=== PATIENT | male | born 1940 | race Caucasian/White ===

== ENCOUNTER 2017-02-02 18:50 | Emergency (ER) | payer MEDICARE, BC ==
--- NOTE | 2017-02-02 20:02 | EDM.PDOC ---
ED HPI GENERAL MEDICAL PROBLEM - General Chief Complaint: General Stated Complaint: URINARY PROBLEMS Time Seen by Provider: 02/02/17 19:30 Source of Information: Reports: Patient History Limitations: Reports: No Limitations - History of Present Illness INITIAL COMMENTS - FREE TEXT/NARRATIVE: According to patient he was at the [facility] today as he was having frequent urination and burning sensation at the tip of the penis. Pt did have urine analysis done in the clinic and told that his urine appears normal. He did not see any provider and he went home. Pt claims that since he has been home he has been having constant spasms in the lower abdomen and he has been urinating small amount of urine every 15-20 minutes. He did use the bathroom here in the emergency room twice. No back pain. No fever or chills. No nausea or vomiting. He has a constant urge to urinate and he has to strain to get small amount of urine. Pt claims he has had problem with his prostate for a while. In december2016 he was started on avodart 5mg daily to help shrink the prostate, but patient claims his symptoms did not improve in [address] Flores his PCP , has increased his flomax to 0.8mg fe weeks ago, and since today evening he started having problem with urinating. Onset: Today Onset Date: 02/02/17 Onset Time: 12:00 Location: Reports: Abdomen Quality: Reports: Ache Severity: Severe Associated Symptoms: Denies: Confusion, Chest Pain, Cough, Diaphoresis, Fever/ Chills, Nausea/Vomiting, Rash, Seizure, Shortness of Breath, Syncope, Weakness - Related Data Allergies Allergy/AdvReac Type Severity Reaction Status Date / Time gluten AdvReac Mild Diarrhea Verified 07/22/15 12:15 smelt Allergy Severe Vomiting Uncoded 07/22/15 12:15 Home Meds: Home Meds Aspirin [Lillian Chewable Aspirin] 162 mg PO DAILY 07/26/13 [History] Lisinopril 20 mg PO DAILY 07/26/13 [History] Rosuvastatin Calcium [Crestor] 20 mg PO DAILY 07/26/13 [History] Tamsulosin HCl 0.4 mg PO DAILY 07/26/13 [History] Clopidogrel Bisulfate [Clopidogrel] 75 mg PO DAILY 07/22/15 [History] Hydrocort/Neomycin/Polymyxin B [Cortisporin Otic Susp] 2 drop EARBOTH TID [History] Loratadine [Claritin] 10 mg PO DAILY PRN 07/22/15 [History] Olopatadine HCl [Pataday] 1 drop EYEBOTH DAILY 07/22/15 [History] Acetaminophen [Tylenol] 650 mg PO Q4H PRN #0 tablet 07/23/15 [Rx] Azithromycin [Zithromax] 250 mg PO DAILY 4 Days tablet 07/23/15 [Rx] Past Medical History HEENT History: Reports: Cataract, Sinusitis, Other (See Below) Other HEENT History: Right ear itching and scaling at times Cardiovascular History: Reports: CAD, High Cholesterol, Hypertension, [place], Stents Gastrointestinal History: Reports: Other (See Below) Other Gastrointestinal History: lactose intolerant Genitourinary History: Reports: BPH Musculoskeletal History: Reports: Other (See Below) Other Musculoskeletal History: lower back pain - Infectious Disease History Infectious Disease History: Reports: Chicken Pox, Measles, Mumps, Rubella, Other (See Below) - Past Surgical History HEENT Surgical History: Reports: Cataract Surgery Cardiovascular Surgical History: Reports: Coronary Artery Stent GI Surgical History: Reports: Appendectomy, Hernia, Abdominal Social & Family History - Family History Family Medical History: Noncontributory Cardiac: Reports: Aneurysm, CAD, [place], Stent Respiratory: Reports: Asthma, COPD GI: Reports: Other (See Below) Other GI Family History: lactose intolerance Musculoskeletal: Reports: Arthritis Neurological: Reports: None Psychiatric: Reports: None - Tobacco Use Smoking Status *Q: Former Smoker Years of Tobacco use: 20 Used Tobacco, but Quit: No Month Tobacco Last Used: january Second Hand Smoke Exposure: No - Alcohol Use Days Per Week of Alcohol Use: 1 Number of Drinks Per Day: 1 Total Drinks Per Week: 1 - Recreational Drug Use Recreational Drug Use: No ED ROS GENERAL - Review of Systems Review Of Systems: See Below Constitutional: Denies: Fever, Chills, Malaise HEENT: Denies: Rhinitis, Sinus Problem, Throat Pain, Throat Swelling Respiratory: Denies: Shortness of Breath, Wheezing, Pleuritic Chest Pain, Cough , Sputum Cardiovascular: Denies: Chest Pain, Lightheadedness GI/Abdominal: Reports: Abdominal Pain. Denies: Constipation, Diarrhea, Nausea, Vomiting : Reports: Frequency, Urgency, Urinary Retention. Denies: Flank Pain, Hematuria, Incontinence Musculoskeletal: Denies: Neck Pain, Joint Pain, Joint Swelling Skin: Denies: Pruritis, Rash ED EXAM, GENERAL - Physical Exam Exam: See Below Exam Limited By: No Limitations General Appearance: Alert, WD/WN, No Apparent Distress Eye Exam: Bilateral Eye: EOMI, PERRL Ears: Normal External Exam, Normal Canal, Hearing Grossly Normal, Normal TMs Ear Exam: Bilateral Ear: Auricle Normal, Canal Normal, TM normal Nose: Normal Inspection, Normal Mucosa, No Blood Throat/Mouth: Normal Inspection, Normal Lips, Normal Teeth, Normal Gums, Normal Oropharynx, Normal Voice, No Airway Compromise Head: Atraumatic, Normocephalic Neck: Normal Inspection, Supple, Non-Tender, Full Range of Motion Respiratory/Chest: No Respiratory Distress, Lungs Clear, Normal Breath Sounds, No Accessory Muscle Use, Chest Non-Tender Cardiovascular: Normal Peripheral Pulses, Regular Rate, Rhythm, No Edema, No Gallop, No JVD, No Murmur, No Rub GI/Abdominal: Normal Bowel Sounds, Soft, No Distention, Tender (suprapubic area) , Other (mild distension of the bladder) Course - Vital Signs Text/Narrative:: Pt has had progressive urinary obstruction over few months. he has been on flomax 0.8mg and avodart 5mg and he has complete urinary obstruction. I did bladder scan and he has about 237 cc of urine, but he feels urge to urinate and has just few drops of urine. His urine analysis appears normal. It does appear like prostatic urinary obstruction. Pt was reassured, I did recommend urinary catheter to take away his discomfort and urge feeling. He did agree. I have placed a indwelling urinary catheter today. he did drain about 150cc or yellowish straw colored urine. Leg bag has been applied. Catheter care discussed.Pt has been advised to stay on the urinary catheter for now. i will tryto contact [facility] in [place] and arrange appointment for patient. Pt advised to continue on flomax and avodart for now. Departure - Departure Time of Disposition: 20:00 Disposition: Home, Self-Care 01 Condition: Good Clinical Impression: Urinary obstruction - Discharge Information - Problem List & Annotations (1) Urinary obstruction SNOMED Code(s): 1735594 Code(s): N13.9 - OBSTRUCTIVE AND REFLUX UROPATHY, UNSPECIFIED Status: Acute - Problem List Review Problem List Initiated/Reviewed/Updated: Yes - Assessment/Plan Assessment:: Acute urinary obstruction Plan: Pt has had progressive urinary obstruction over few months. he has been on flomax 0.8mg and avodart 5mg and he has complete urinary obstruction. I did bladder scan and he has about 237 cc of urine, but he feels urge to urinate and has just few drops of urine. His urine analysis appears normal. It does appear like prostatic urinary obstruction. Pt was reassured, I did recommend urinary catheter to take away his discomfort and urge feeling. He did agree. I have placed a indwelling urinary catheter today. he did drain about 150cc or yellowish straw colored urine. Leg bag has been applied. Catheter care discussed.Pt has been advised to stay on the urinary catheter for now. i will tryto contact [facility] clinic in [place] and arrange appointment for patient. Pt advised to continue on flomax and avodart for now.
== END 2017-02-02 20:00 | disposition home or self-care (01) ==
LOC: LB.ED 18:50
DX: N13.9 Obstructive and reflux uropathy, unspecified (principal); I10 Essential (primary) hypertension; I25.10 Atherosclerotic heart disease of native coronary artery without angina pectoris; E78.00 Pure hypercholesterolemia, unspecified; Z87.891 Personal history of nicotine dependence; Z79.82 Long term (current) use of aspirin; Z79.02 Long term (current) use of antithrombotics/antiplatelets; Z79.2 Long term (current) use of antibiotics; Z79.899 Other long term (current) drug therapy; Z91.048 Other nonmedicinal substance allergy status; R30.0 Dysuria
CPT/HCPCS: 51702; 51798; 81001; 99283; 99283-25

== ENCOUNTER 2017-03-21 16:39 | Emergency (ER) | payer MEDICARE, BC ==
[2017-03-21] MEDS ORDERED: Ondansetron 4 MG Tab.DIS PO ONE (19:06)
[2017-03-21] MEDS ORDERED: Ondansetron 4 MG Tab.DIS ONE (19:09)
[2017-03-21] MEDS ORDERED: Oseltamivir 75 MG Cap ONE ×2 (19:50→19:53)
--- NOTE | 2017-03-22 00:34 | ER ---
HISTORY OF PRESENT ILLNESS: A 76-year-old male here with complaints of not feeling well since Wednesday. He has had flu-like symptoms. He has had a fever as high as 101 at home, achiness, and tiredness. He did vomit once upon arriving at the emergency room this evening. The patient denies any problems with shortness of breath or any recent falls or injuries. He has been exposed to other sick people as well. He is currently ending a 35- day course of Cipro for prostatitis. OBJECTIVE: GENERAL APPEARANCE: The patient is awake and alert. No obvious distress. VITAL SIGNS: Reviewed. As listed, he has a current temp of 99.1. HEENT: Ears, TMs are normal. Nares are patent. Oral mucous membranes are moist. Posterior pharynx shows mild drainage. Tonsils are not enlarged or injected. NECK: Supple. LUNGS: Lung exam reveals minimal end- expiratory rhonchi in both upper lobes. No wheezing. CARDIAC: Heart sounds distinct. No murmurs. ABDOMEN: Soft and nontender. Bowel sounds are present. SKIN: Warm and dry. LAB AND X-RAY: Rapid flu is positive for influenza A. CBC shows a normal white count. Metabolic panel is unremarkable. DIAGNOSIS: Influenza type A. TREATMENT PLAN: Tamiflu will be started at 75 mg b.i.d. for 5 days. The patient's will also be started on Tamiflu prophylactically which is 75 mg daily for 10 days. He is to go home and rest, take it easy, use Tylenol or ibuprofen as needed for fever and achiness, and increase his liquid intake using small frequent drinks. Follow up should be p.r.n. but promptly if his symptoms get worse. CRS/MODL /[id number]
--- NOTE | 2017-03-22 09:08 | CR ---
DATE OF SERVICE: 03/21/17 CLINICAL DATA: cough AP CHEST: Comparison is made to a prior exam dated 07/22/15. The heart size is normal. The aorta is calcified and ectatic. There is linear fibrosis in the right lung base. The lungs are otherwise clear. No pneumothorax. No pleural effusions. No areas of consolidation. [id number] MTDD
== END 2017-03-21 19:57 | disposition home or self-care (01) ==
LOC: LB.ED 16:39
DX: J10.1 Influenza due to other identified influenza virus with other respiratory manifestations (principal)
CPT/HCPCS: 36415; 71045; 80048; 85025; 87804; 99284; A9270-GY

== ENCOUNTER 2020-04-14 16:28 | Emergency (ER) | payer MEDICARE ==
[2020-04-14] MEDS: Aspirin 81 MG Tab.Chew PO STA (17:40)
--- NOTE | 2020-04-14 17:47 | EDM.PDOC ---
ED HPI GENERAL MEDICAL PROBLEM - General Chief Complaint: General Stated Complaint: SHORT OF BREATH Time Seen by Provider: 04/14/20 17:30 Source of Information: Reports: Patient History Limitations: Reports: No Limitations - History of Present Illness INITIAL COMMENTS - FREE TEXT/NARRATIVE: patient presented to the ER with a c/o exertional dyspnea. h/o HTN and previous cardiac stents placement 6-7 years ago. Reports that today's dyspnea has occurred after he was changing his car tires. No CP. He reports that he is usually active and cam walk a mile without problems, but usually get SOB after strenous activities like today. Most of the times it resolves after one Nitro SL, but today, he had to take another nitro to help with his symptoms.. given the medical history, his decided to call 911 to bring him to the ER. Per EMS reports, his was stable and asymptomatic upon their arrival. EKG was WNL and vitals were stable and WNL too. Patient is on ASA 81mg and plavix daily. 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 - Related Data Allergies Allergy/AdvReac Type Severity Reaction Status Date / Time gluten AdvReac Mild Diarrhea Verified 07/22/15 12:15 smelt Allergy Severe Vomiting Uncoded 07/22/15 12:15 Home Meds: Home Meds Aspirin [Lillian Chewable Aspirin] 162 mg PO DAILY 07/26/13 [History] Rosuvastatin Calcium [Crestor] 20 mg PO ASDIRECTED MDD twice weekly 07/26/13 [History] Tamsulosin HCl 0.4 mg PO DAILY 07/26/13 [History] Clopidogrel Bisulfate [Clopidogrel] 75 mg PO DAILY 07/22/15 [History] Acetaminophen [Tylenol] 650 mg PO Q4H PRN #0 tablet 07/23/15 [Rx] Losartan [Cozaar] 25 mg PO DAILY 04/14/20 [History] Past Medical History HEENT History: Reports: Cataract, Sinusitis, Other (See Below) Other HEENT History: Right ear itching and scaling at times Cardiovascular History: Reports: CAD, High Cholesterol, Hypertension, [place], Stents Gastrointestinal History: Reports: Other (See Below) Other Gastrointestinal History: lactose intolerant Genitourinary History: Reports: BPH Musculoskeletal History: Reports: Other (See Below) Other Musculoskeletal History: lower back pain - Infectious Disease History Infectious Disease History: Reports: Chicken Pox, Measles, Mumps, Rubella, Other (See Below) - Past Surgical History HEENT Surgical History: Reports: Cataract Surgery Cardiovascular Surgical History: Reports: Coronary Artery Stent GI Surgical History: Reports: Appendectomy, Hernia, Abdominal Social & Family History - Family History Family Medical History: No Pertinent Family History Cardiac: Reports: Aneurysm, CAD, [place], Stent Respiratory: Reports: Asthma, COPD GI: Reports: Other (See Below) Other GI Family History: lactose intolerance Musculoskeletal: Reports: Arthritis Neurological: Reports: None Psychiatric: Reports: None - Tobacco Use Tobacco Use Status *Q: Never Tobacco User Tobacco Use Within Last Twelve Months: No ED ROS GENERAL - Review of Systems Review Of Systems: See Below Constitutional: Reports: No Symptoms HEENT: Reports: No Symptoms Respiratory: Reports: Shortness of Breath Cardiovascular: Reports: Dyspnea on Exertion. Denies: Chest Pain Endocrine: Reports: No Symptoms GI/Abdominal: Reports: No Symptoms : Reports: No Symptoms Musculoskeletal: Reports: No Symptoms Skin: Reports: No Symptoms Neurological: Reports: No Symptoms Psychiatric: Reports: No Symptoms ED EXAM, GENERAL - Physical Exam Exam: See Below Exam Limited By: No Limitations General Appearance: Alert, WD/WN, No Apparent Distress Eye Exam: Bilateral Eye: EOMI Throat/Mouth: Normal Inspection Head: Atraumatic, Normocephalic Respiratory/Chest: No Respiratory Distress, Lungs Clear Cardiovascular: Normal Peripheral Pulses, Regular Rate, Rhythm, No Edema Peripheral Pulses: 2+: Carotid (L), Carotid (R) GI/Abdominal: Normal Bowel Sounds, Soft Extremities: Normal Inspection, Normal Range of Motion Neurological: Alert, Oriented, Normal Cognition, No Motor/Sensory Deficits Psychiatric: Normal Affect Course - Vital Signs Last Recorded V/S: Last Vital Signs Temp 36.9 C 04/14/20 17:33 Pulse 64 04/14/20 21:00 Resp 16 04/14/20 21:00 BP 150/77 H 04/14/20 21:00 Pulse Ox 97 04/14/20 19:00 - Orders/Labs/Meds Labs: Laboratory Tests 04/14/20 04/14/20 04/14/20 Range/Units 17:39 17:39 17:39 WBC 7.6 D (4.0-11.0) K/uL RBC 4.81 (4.50-6.50) M/uL Hgb 14.4 (13.0-18.0) g/dL Hct 43.4 (40.0-54.0) % MCV 90 (76-96) fL MCH 29.9 (27.0-32.0) pg MCHC 33.2 (31.0-35.0) g/dL RDW 13.1 (11.0-16.0) % Plt Count 144 L (150-400) K/uL MPV 11.3 H (6.0-10.0) fL D-Dimer, Quantitative < 100 (0-400) ng/mL Sodium 139 (136-145) mmol/L Potassium 3.9 (3.5-5.1) mmol/L Chloride 103 (98-107) mmol/L Carbon Dioxide 26.1 (21.0-32.0) mmol/L Anion Gap 13.8 (5.0-15.0) mmol/L BUN 13 D (8-26) mg/dL Creatinine 1.07 (0.70-1.30) mg/dL Est Cr Clr Drug Dosing TNP Estimated GFR (MDRD) > 60 (>60) MLS/MIN BUN/Creatinine Ratio 12.1 (6-25) Glucose 113 H (74-100) mg/dL Calcium 10.0 (8.5-10.1) mg/dL Total Bilirubin 0.3 D (0.0-1.0) mg/dL AST 31 (15-37) U/L ALT 41 (12-78) U/L Alkaline Phosphatase 120 H (46-116) U/L Troponin I < 0.017 (0.000-0.060) ng/mL B-Natriuretic Peptide 86 D (0-450) pg/mL Total Protein 7.6 (6.4-8.2) g/dL Albumin 3.6 (3.4-5.0) g/dL Globulin 4.0 (2.2-4.2) g/dL Albumin/Globulin Ratio 0.9 (0.8-2.0) 04/14/20 Range/Units 21:00 WBC (4.0-11.0) K/uL RBC (4.50-6.50) M/uL Hgb (13.0-18.0) g/dL Hct (40.0-54.0) % MCV (76-96) fL MCH (27.0-32.0) pg MCHC (31.0-35.0) g/dL RDW (11.0-16.0) % Plt Count (150-400) K/uL MPV (6.0-10.0) fL D-Dimer, Quantitative (0-400) ng/mL Sodium (136-145) mmol/L Potassium (3.5-5.1) mmol/L Chloride (98-107) mmol/L Carbon Dioxide (21.0-32.0) mmol/L Anion Gap (5.0-15.0) mmol/L BUN (8-26) mg/dL Creatinine (0.70-1.30) mg/dL Est Cr Clr Drug Dosing Estimated GFR (MDRD) (>60) MLS/MIN BUN/Creatinine Ratio (6-25) Glucose (74-100) mg/dL Calcium (8.5-10.1) mg/dL Total Bilirubin (0.0-1.0) mg/dL AST (15-37) U/L ALT (12-78) U/L Alkaline Phosphatase (46-116) U/L Troponin I 0.035 D (0.000-0.060) ng/mL B-Natriuretic Peptide (0-450) pg/mL Total Protein (6.4-8.2) g/dL Albumin (3.4-5.0) g/dL Globulin (2.2-4.2) g/dL Albumin/Globulin Ratio (0.8-2.0) Meds: Medications Discontinued Medications Generic Name Dose Route Start Last Admin Trade Name Freq PRN Reason Stop Dose Admin Aspirin 243 mg 04/14/20 17:40 04/14/20 17:40 Aspirin PO 04/14/20 17:41 243 mg NOW STA Administration - Re-Assessments/Exams Free Text/Narrative Re-Assessment/Exam: Upon arrival, patient was connected to a monitor. IV line was started.. EKG was ordered, as well as, cardiac and general labs. Patient is asymptomatic upon arrival. labs were WNL, including trop, DDIMER and BNP. Also Cr and BUN. Patient denies any symptoms at the moment He was placed in the ER for observation and troponin level was repeated 4 hrs ago - and this was still WNL patient will be d/cd home Departure - Departure Time of Disposition: 21:30 Disposition: Home, Self-Care 01 Condition: Good Clinical Impression: Exertional shortness of breath, Chronic stable angina - Discharge Information *PRESCRIPTION DRUG MONITORING PROGRAM REVIEWED*: Not Applicable *COPY OF PRESCRIPTION DRUG MONITORING REPORT IN PATIENT POONAM: Not Applicable Instructions: Nonspecific Chest Pain, Adult, [id number] Referrals: PCP,None [Primary Care Provider] - Forms: ED Department Discharge Additional Instructions: Follow up as discussed with Dr Bell Sepsis Event Note (ED) - Evaluation Sepsis Screening Result: No Definite Risk
[2020-04-15 05:21] VITALS: BP 150/77; PULSE 64
--- NOTE | 2020-04-15 08:37 | CR ---
DATE OF SERVICE: 04/14/20 CLINICAL DATA: SOB AP CHEST: Comparison is made to a prior exam dated 03/21/17. The heart size is normal. There is calcification of the aortic arch. The lungs are clear. No pneumothorax. No pleural effusions. No other significant findings. [id number] [facility]
== END 2020-04-14 21:35 | disposition home or self-care (01) ==
LOC: LB.ED 16:28
DX: I25.118 Atherosclerotic heart disease of native coronary artery with other forms of angina pectoris (principal); E78.00 Pure hypercholesterolemia, unspecified; I10 Essential (primary) hypertension; I25.2 Old myocardial infarction; N40.0 Benign prostatic hyperplasia without lower urinary tract symptoms; Z95.5 Presence of coronary angioplasty implant and graft; Z91.018 Allergy to other foods; Z91.013 Allergy to seafood; Z79.82 Long term (current) use of aspirin; Z79.02 Long term (current) use of antithrombotics/antiplatelets; Z79.899 Other long term (current) drug therapy
CPT/HCPCS: 36415; 71045; 80053; 83880; 84484; 85027; 85379; 93005; 99285; A9270; 99284; A0425; A0429